=== PATIENT | female | born 1985 | race Hispanic/Latino ===

== ENCOUNTER 2017-11-18 03:57 | Emergency (ER) | payer OTHER ==
[2017-11-18] MEDS ORDERED: ACETAMINOPHEN EXTRA STRENGTH 500 MG TABLET ONE (04:34)
== END 2017-11-18 06:02 | disposition home or self-care (01) ==
LOC: EDH 03:57
DX: S63.681A Other sprain of right thumb, initial encounter (principal); S60.011A Contusion of right thumb without damage to nail, initial encounter; Z90.49 Acquired absence of other specified parts of digestive tract; W10.8XXA Fall (on) (from) other stairs and steps, initial encounter; Y93.01 Activity, walking, marching and hiking; Y92.098 Other place in other non-institutional residence as the place of occurrence of the external cause; Y99.8 Other external cause status
CPT/HCPCS: 73110; 73130

== ENCOUNTER 2024-04-02 15:03 | Emergency (ER) | payer MEDICAID ==
[~2024-04-02] VITALS: Ht 144.8 cm; Wt 57.6 kg
--- NOTE | 2024-04-02 16:44 | NUR ---
ASSUMED CARE AT THIS TIME
[2024-04-02] MEDS ORDERED: SILV20CR11 TP (18:13)
[2024-04-02] MEDS ORDERED: CLIN-116 PO (18:13)
--- NOTE | 2024-04-02 18:14 | ERN ---
General Chief Complaint: Abscess Stated Complaint: STAPH INFECTION ON ARMPIT Time Seen by MD: 15:31 Time Seen by Midlevel: 15:31 Source: patient History of Present Illness Initial Comments 38-year-old female who presents to the emergency department due to an abscess to the left arm pit ongoing x1 week. Patient reports pain, swelling and redness to the left armpit. The patient reports previous similar episodes to the right armpit. Denies any drainage, fever or further associated symptoms. Denies any significant past medical history. Allergies: Coded Allergies: No Known Allergies (Unverified Allergy, Unknown, 04/02/24) Home Meds Active Scripts Silver Sulfadiazine (Silvadene) 1 % Cream..g., 1 APPL TP DAILY for 7 Days, #50 GM 0 Refills apply to affected area(s) Prov:MICHAEL PIZANO 04/02/24 Clindamycin HCl (Clindamycin HCl) 150 Mg Capsule, 450 MG PO TID for 7 Days, #63 CAP Prov:MICHAEL PIZANO 04/02/24 Past Medical History Past Medical History: No Pertinent History Past Surgical History: Cholecystectomy Female( History) LMP: Mar 15, 2024 ROS Dictation Constitutional: Negative for fever,chills, and weight loss Eyes: Negative for injury, pain,redness, and discharge ENT: Negative for injury,pain or swelling Cardiovascular: Negative for chest pain, palpitations, and edema Respiratory: Negative for shortness of breath, cough, and wheezing, Abdomen/GI: Negative for abdominal pain, nausea, vomiting, diarrhea, and constipation Back: Negative for injury and pain : Negative for painful urination, bleeding or discharge MS/Extremity: Negative for injury and deformity Skin: Positive for left axillary abscess Negative for rash, and discoloration Neuro: Negative for headache, weakness, numbness, tingling, and seizure Psych: Negative for suicide ideation, homicidal ideation, and hallucinations Physical Exam Physical Exam Dictation General: awake, alert, no acute distress Head/Face: Normocephalic, atraumatic Eyes: PERRL, EOMI, normal conjunctiva ENT: oral cavity clear, oral mucosa moist Neck: Supple, normal range of motion Cardiovascular: RRR, normal S1/S2 Respiratory: No respiratory distress Skin: 2nd degree burn noted to the right glute, left axillary folliculitis, erythema, no drainage, warm, dry, normal turgor MS/Extremity: Pulses equal, no cyanosis, neurovascular intact, FROM Neuro: COAx4, GCS 15, no neurological deficits, normal gait Psych: Normal behavior, mood, and affect normal MDM MDM: Differential diagnosis: Abscess, cellulitis, folliculitis Rationale:38-year-old female who presents to the emergency department due to an abscess to the left arm pit ongoing x1 week. Patient reports pain, swelling and redness to the left armpit. The patient reports previous similar episodes to the right armpit. Denies any drainage, fever or further associated symptoms. Denies any significant past medical history. Per physical examination 2nd degree burn noted to the right glute, left axillary folliculitis with erythema, no drainage. Acetaminophen administered in the ED. Clindamycin and Silvadene prescribed for outpatient treatment. Patient was educated on findings and diagnosis. Advised to follow up with PCP. Return to the emergency department if any worsening symptoms. Patient verbalized understanding. Patient stable for discharge. There are no social concerns with this patient. I independently interpreted the test that were performed, results were reviewed by me and considered findings on radiology if ordered. Medical management and examination interpretation discussions were had by me with other qualified healthcare professionals as indicated for the patient's care. ED Course Orders Procedure Category Date Status Time Acetaminophen 500mg PHA 04/02/24 Complete Tab (Tylenol 500mg T 18:30 Current Medications Medications (Trade) Dose Ordered Sig/Tiffany Route PRN Reason Start Time Stop Time Status Last Admin Dose Admin Acetaminophen (TYLenol 500MG TAB) 1,000 mg ONCE ONCE PO 04/02/24 18:30 04/02/24 18:31 DC 04/02/24 18:30 Vital Signs Date Time Temp Pulse Resp B/P (MAP) Pulse Ox O2 Delivery O2 Flow Rate FiO2 04/02/24 18:15 98.2 86 20 149/81 99 Room Air* 0 21 04/02/24 15:49 98.2 114 20 152/94 99 Room Air DX & DISP Disposition: Discharge Departure Impression: Primary Impression: Folliculitis Additional Impressions: Second degree burn, Cellulitis Condition: Stable Scripts Silver Sulfadiazine (Silvadene) 1 % Cream..g. 1 APPL TP DAILY for 7 Days, #50 GM 0 Refills apply to affected area(s) Prov: MICHAEL PIZANO 04/02/24 Clindamycin HCl (Clindamycin HCl) 150 Mg Capsule 450 MG PO TID for 7 Days, #63 CAP Prov: MICHAEL PIZANO 04/02/24 Additional Instructions: Discharge home. Rest. Follow up with primary care DrKimmy in 24 hours. Return to the ER for any acute changes or worsening symptoms. If any medications were prescribed take as directed. Okay to continue home medications unless otherwise discussed during your visit in the emergency room today. Patient was also advised to follow-up with primary care physician in 1 to 2 days for continued monitoring. Referrals: SELF,REFERRAL (PCP) I performed the substantive portion of the visit. I have reviewed and personall y made and approve the management plan that is documented in the notes by myself or the JL. I acknowledge full responsibility for the patient's management plan. MICHAEL PIZANO Apr 02, 2024 18:14
[2024-04-02 18:15] VITALS: BP 149/81; PULSE 86; RESP 20; TEMP 98.2; O2SAT 99
[2024-04-02] MEDS: acetaMINOPHEN 500 MG TABLET PO ONE (18:30)
== END 2024-04-02 18:33 | disposition home or self-care (01) ==
LOC: EDH 15:03
DX: T23.202A Burn of second degree of left hand, unspecified site, initial encounter (principal); L73.9 Follicular disorder, unspecified; L03.112 Cellulitis of left axilla; Z90.49 Acquired absence of other specified parts of digestive tract; X08.8XXA Exposure to other specified smoke, fire and flames, initial encounter; Y93.89 Activity, other specified; Y92.89 Other specified places as the place of occurrence of the external cause; Y99.8 Other external cause status
CPT/HCPCS: 99283

== ENCOUNTER 2024-04-07 12:43 | Emergency (ER) | payer MEDICAID ==
[~2024-04-07] VITALS: Ht 144.8 cm; Wt 57.6 kg
[~2024-04-07 12:43] MED LIST: CLIN-116 PO; SILV20CR11 TP
--- NOTE | 2024-04-07 15:50 | ERN ---
ED Note History of Present Illness Stated Complaint: POSSIBLE STAFF INFECTION Chief Complaint: Abscess Time Seen by MD: 14:27 Time Seen by Midlevel: 15:45 Dictation: Ms. Hernandez is a 38-year-old female with no reported chronic health issues who presented to the emergency department for pain to the left axilla. She reports pain to the left axilla times two weeks. She states she has a history of abscess formation in this area in the past. She was seen in this ER on 04/02 and was placed on clindamycin for diagnosis of folliculitis. She states the pain continues and today it open and is draining purulent drainage. She denies having fever, chills, shortness of breath, cough, chest pain, palpitations, abdominal pain, nausea, vomiting, diarrhea, dysuria, headache, or dizziness. Allergies: Coded Allergies: No Known Allergies (Unverified Allergy, Unknown, 04/02/24) Home Meds Active Scripts Tramadol HCl/Acetaminophen (Tramadol-Acetaminophn 37.5-325) 37.5 Mg-325 Mg Tablet, 1 EACH PO [id number], #12 TAB 0 Refills Prov:SRINIVASA PEPE NP 04/07/24 Ibuprofen (Ibuprofen) 600 Mg Tablet, 600 MG PO Q6H PRN for PAIN, #15 TAB 0 Refills Prov:SRINIVASA PEPE NP 04/07/24 Amoxicillin/Potassium Clav (Amox Tr-K Clv 875-125 mg Tab) 875 Mg-125 Mg Tablet, 1 TAB PO BID for 10 Days, #20 TAB 0 Refills Prov:SRINIVASA PEPE NP 04/07/24 Silver Sulfadiazine (Silvadene) 1 % Cream..g., 1 APPL TP DAILY for 7 Days, #50 GM 0 Refills apply to affected area(s) Prov:MICHAEL PIZANO 04/02/24 Clindamycin HCl (Clindamycin HCl) 150 Mg Capsule, 450 MG PO TID for 7 Days, #63 CAP Prov:MICHAEL PIZANO 04/02/24 Past Medical History Past Medical History: No Pertinent History Surgical History: Cholecystectomy LMP: Mar 15, 2024 RN Note Reviewed/Agreed w/PFSH: Yes Review of System Dictation REVIEW OF SYSTEMS: CONSTITUTIONAL: Patient denies fevers, chills, sweats and weight changes. EYES: Patient denies any visual symptoms. EARS, NOSE, AND THROAT: No difficulties with hearing. No symptoms of rhinitis or sore throat. CARDIOVASCULAR: Patient denies chest pains, palpitations, orthopnea and paroxysmal nocturnal dyspnea. RESPIRATORY: No dyspnea on exertion, no wheezing or cough. GI: No nausea, vomiting, diarrhea, constipation, abdominal pain, hematochezia or melena. : No urinary hesitancy or dribbling. No nocturia or urinary frequency. No abnormal urethral discharge. MUSCULOSKELETAL: No myalgias or arthralgias. NEUROLOGIC: No chronic headaches, no seizures. Patient denies numbness, tingling or weakness. PSYCHIATRIC: Patient denies problems with mood disturbance. No problems with anxiety. ENDOCRINE: No excessive urination or excessive thirst. DERMATOLOGIC: Reports abscess left axilla. States she has been on a course of clindamycin with no improvement. Initial Vital Sign VS Vital Signs Date Time Temp Pulse Resp B/P (MAP) Pulse Ox O2 Delivery O2 Flow Rate FiO2 04/07/24 13:00 98.4 99 16 150/93 99 Room Air 0 04/07/24 16:55 21 Physical Exam Dictation Vital signs: Reviewed. Afebrile Constitutional: No acute distress. Non-toxic appearing. Head/Face: Normocephalic, atraumatic. Eyes: Periorbital areas with no swelling, redness, or edema. Lids and lashes are normal. Conjunctival injection is absent. Sclera anicteric. Pupils equal, round, reactive to light. ENT: Pinnas intact and no signs of trauma or erythema. Ear canals clear and no discharge. TMs no erythema. No nasal discharge or bleeding noted. Oropharynx with no exudate, redness, swelling, masses, exudates, or evidence of obstruction. Uvula midline. Mucous membranes moist. Neck: Trachea midline, no masses palpated, and no cervical lymphadenopathy. No swelling. Supple, full range of motion. Chest/Axilla: No tenderness, no crepitus, no paradoxical movement, no retractions. Cardiovascular: Regular rate, regular rhythm, no murmur, no gallops. Symmetric pulses. No peripheral edema. Respiratory: Respirations even and unlabored. Lung sounds clear; no wheezes, rales or rhonchi. Room air SpO2 99% Gastrointestinal: Inspection is normal. No distention is appreciated. Bowel sounds are normal. No mass or organomegaly . There is no tenderness. No rebound. No rigidity. No voluntary or involuntary guarding. No Lerma's sign. Neurological: Normal speech, gross motor function intact, gross sensory function intact. No focal weakness/Paresthesia. Musculoskeletal/Extremities: All extremities have full range of motion, no pain or tenderness on palpation. Symmetric pulses. Integumentary: Skin is normal color, warm and dry. Cap refill less than 3 seconds. There is a 4 cm lesion to left axilla with fluctuant center with small open area with purulent drainage. Wound was cultured. There was no surrounding erythema or warmth extending to the chest wall or breast. ED Course ED Course Uneventful ED course. Vital signs stable; afebrile. She received dose Toradol x1. I and D was performed of the left axilla fluctuant area and packed with gauze. Sterile dressing was applied. Tolerated well. Pain well controlled. Medical Decision Making MDM MDM: Differential diagnosis: Abscess axilla, cellulitis Rationale: Tests considered and ordered secondary to shared decision making include: Examination Previous outside records reviewed: Old ER visits. Risk of complication and/or morbidity or mortality of patient management: None Medications-Per medication reconciliation Need for hospitalization: Patient does not meet criteria for hospitalization. Need for emergency major/minor surgery: No There are no social concerns with this patient. Prescription drug management: Ibuprofen, tramadol, Augmentin Prescriptions will include symptomatic care Patient's prior external medical records from other ER visits were reviewed by me as indicated. Prior testing and results from previous visits were reviewed. Prior tests were taken into account with medical decision making and resource utilization, independent historian/historians were used to obtain complete medical history. I independently interpreted the test that were performed, results were reviewed by me and considered findings on radiology if ordered. Medical management and examination interpretation discussions were had by me with other qualified healthcare professionals as indicated for the patient's care. Procedure Site: Left axilla Blade Size: 1% lidocaine utilized 6 mL. I & D Procedure: no betadine prepno sterile dressing appliedno gauze wick placed DX & DISP Disposition: Discharge Departure Impression: Primary Impression: Abscess of axillary fold Condition: Stable Scripts Tramadol HCl/Acetaminophen (Tramadol-Acetaminophn 37.5-325) 37.5 Mg-325 Mg Tablet 1 EACH PO [id number], #12 TAB 0 Refills Prov: SRINIVASA PEPE NP 04/07/24 Ibuprofen (Ibuprofen) 600 Mg Tablet 600 MG PO Q6H PRN for PAIN, #15 TAB 0 Refills Prov: SRINIVASA PEPE NP 04/07/24 Amoxicillin/Potassium Clav (Amox Tr-K Clv 875-125 mg Tab) 875 Mg-125 Mg Tablet 1 TAB PO BID for 10 Days, #20 TAB 0 Refills Prov: SRINIVASA PEPE NP 04/07/24 Additional Instructions: Allow packing to fall out. Warm moist compresses; okay to shower. Continue antibiotic with amoxicillin twice daily for 10 days. May take ibuprofen 600 mg every 6 hours as needed for discomfort. May take tramadol every 12 hours as needed for worsening pain. Continue to monitor for increased swelling, surrounding warmth or redness, and fever. Follow up with your primary care physician this week. Return to the emergency department for any worsening of symptoms or concerns. Referrals: NONE (PCP) Time of Disposition: 16:58 I performed a substantive portion of the visit. I have reviewed and personally made and approve the management plan that is documented in the notes by myself with JL/resident. I acknowledged full responsibility for the patient's management plan. SRINIVASA PEPE NP Apr 07, 2024 15:50 ENRIQUE KIRBY DO Apr 14, 2024 08:59
[2024-04-07] MEDS: ketOROlac 30MG VIAL (30MG/ML) IM ONE (16:02)
[2024-04-07 16:55] VITALS: BP 141/72; PULSE 86; RESP 16; TEMP 98.2; O2SAT 99
[2024-04-07] MEDS ORDERED: TRAM-543 PO (16:57)
[2024-04-07] MEDS ORDERED: IBUP-2070 PO (16:57)
[2024-04-07] MEDS ORDERED: AMOX1TAB16 PO (16:57)
== END 2024-04-07 17:06 | disposition home or self-care (01) ==
LOC: EDH 12:43
DX: L02.412 Cutaneous abscess of left axilla (principal); Z90.49 Acquired absence of other specified parts of digestive tract; Z79.899 Other long term (current) drug therapy
CPT/HCPCS: 99283; 10060; 87076; 87086 ×2; 87186 ×2; 87070; 96372; J1885

== ENCOUNTER 2024-08-10 17:54 | Emergency (ER) | payer SELFPAY ==
[~2024-08-10] VITALS: Ht 144.8 cm; Wt 62.1 kg
[~2024-08-10 17:54] MED LIST changes: +AMOX1TAB16 PO; +IBUP-2070 PO; +TRAM-543 PO
[2024-08-10 18:16] LABS: ADD UA MICROSCOPIC YES; APPEARANCE,URINE HAZY (CLEAR); GLUCOSE, URINE (UA) NEGATIVE (NEGATIVE); LEUKOCYTE ESTERASE ,URINE 25 Leu/uL (NEGATIVE); NITRATE,URINE NEGATIVE (NEGATIVE); OCCULT BLOOD,URINE NEGATIVE (NEGATIVE)
[2024-08-10 18:20] LABS: SQUAMOUS EPITHELIAL CELL,UR MOD /HPF (0-2)
--- NOTE | 2024-08-10 18:20 | ERN ---
ED Note History of Present Illness Stated Complaint: ABD PAIN WITH Chief Complaint: Abdominal Pain in Time Seen by MD: 17:57 Time Seen by Midlevel: 18:00 Dictation: 39-year-old female coming in with complaints of lower abdominal pain, sharp. Patient states it started today. Patient states she is , does not know how far along she is. Patient is attributing her pain to moving heavy objects yesterday. However wanted to coming to the emergency room and be evaluated. Denies any dysuria, hematuria, vaginal discharge, vaginal bleeding. Allergies: Coded Allergies: No Known Allergies (Unverified Allergy, Unknown, 04/02/24) Home Meds Active Scripts Tramadol HCl/Acetaminophen (Tramadol-Acetaminophn 37.5-325) 37.5 Mg-325 Mg Tablet, 1 EACH PO [id number], #12 TAB 0 Refills Prov:SRINIVASA PEPE NP 04/07/24 Ibuprofen (Ibuprofen) 600 Mg Tablet, 600 MG PO Q6H PRN for PAIN, #15 TAB 0 Refills Prov:SRINIVASA PEPE NP 04/07/24 Amoxicillin/Potassium Clav (Amox Tr-K Clv 875-125 mg Tab) 875 Mg-125 Mg Tablet, 1 TAB PO BID for 10 Days, #20 TAB 0 Refills Prov:SRINIVASA PEPE NP 04/07/24 Silver Sulfadiazine (Silvadene) 1 % Cream..g., 1 APPL TP DAILY for 7 Days, #50 GM 0 Refills apply to affected area(s) Prov:MICHAEL PIZANO 04/02/24 Clindamycin HCl (Clindamycin HCl) 150 Mg Capsule, 450 MG PO TID for 7 Days, #63 CAP Prov:MICHAEL PIZANO 04/02/24 Past Medical History Past Medical History: No Pertinent History Surgical History: Cholecystectomy Surgical History Other: D&C X2 : 5 Para: 2 Aborts: 2 Review of System Dictation Constitutional: Negative for fever,chills, and weight loss Eyes: Negative for injury, pain,redness, and discharge ENT: Negative for injury,pain or swelling Cardiovascular: Negative for chest pain, palpitations, and edema Respiratory: Negative for shortness of breath, cough, and wheezing, Abdomen/GI: Lower abdominal pain Back: Negative for injury and pain : Negative for injury, bleeding and discharge MS/Extremity: Negative for injury and deformity Skin: Negative for rash, and discoloration Neuro: Negative for headache, weakness, numbness, tingling, and seizure Psych: Negative for suicide ideation, homicidal ideation, and hallucinations Review of Systems: was completed Initial Vital Sign VS Vital Signs Date Time Temp Pulse Resp B/P (MAP) Pulse Ox O2 Delivery O2 Flow Rate FiO2 08/10/24 17:57 98.2 89 16 134/79 100 Room Air 0 08/10/24 18:12 21 Physical Exam Dictation General: awake, alert, NAD Head/Face: Normocephalic, atraumatic Eyes: PERRL, EOMI, vision at baseline ENT: oral cavity clear, TMs clear, no signs of infection Neck: Trachea midline, supple, no nuchal rigidity Cardiovascular: RRR, normal S1/S2, No MRGs, no JVD Respiratory: CTAB, no respiratory distress, No rales or wheezes Abdomen: Soft, non-tender, non-distended, normal bowel sounds, no guarding or rebound. Skin: Warm, dry, normal turgor, no rash MS/Extremity: Pulses equal, no cyanosis, neurovascular intact, FROM Neuro: COAx4, GCS 15, strength 5/5, CN 2-12 intact, normal cerebellar exam, normal gait, Psych: Normal behavior, mood, and affect normal Results (Laboratory/Radiology) Laboratory/Radiology Laboratory Tests Test 08/10/24 18:10 08/10/24 18:14 Urine Color LIGHT-YELLOW (YELLOW) Urine Appearance HAZY (CLEAR) Urine pH 7.0 (5.0-8.0) Urine Specific [place] 1.029 (1.001-1.031) Urine Protein NEGATIVE mg/dL (NEGATIVE) Urine Glucose (UA) NEGATIVE mg/dL (NEGATIVE) Urine Ketones NEGATIVE mg/dL (NEGATIVE) Urine Occult Blood NEGATIVE (NEGATIVE) Urine Nitrate NEGATIVE (NEGATIVE) Urine Bilirubin NEGATIVE mg/dL (NEGATIVE) Urine Urobilinogen 0.2 mg/dL (0.2-1.0) Urine Leukocyte Esterase 25 [place]/uL (NEGATIVE) H Urine RBC 0-1 /HPF (0-1) Urine WBC 2-5 /HPF (0-1) H Urine Squamous Epithelial Cells MOD /HPF (0-2) Urine Amorphous Crystals (Auto) RARE /LPF (None Seen) Urine Bacteria FEW /HPF (None Seen) White Blood Count 9.5 K/uL (4.8-10.8) Red Blood Count 4.25 MIL/uL (4.00-5.50) Hemoglobin 12.7 g/dL (12.0-16.0) Hematocrit 37.2 % (36-48) Mean Corpuscular Volume 87.5 fL (79-99) Mean Corpuscular Hemoglobin 29.9 pg (27.0-33.0) Mean Corpuscular Hemoglobin Concent 34.1 g/dL (32.0-36.0) Red Cell Distribution Width 13.5 % (11.0-15.5) Platelet Count 375 K/uL (130-400) Mean Platelet Volume 10.1 fL (7.5-10.5) Immature Granulocyte % (Auto) 0.2 % (0-1) Neutrophils (%) (Auto) 61.0 % (40.0-77.0) Lymphocytes (%) (Auto) 28.7 % (21.0-51.0) Monocytes (%) (Auto) 7.9 % (3.0-13.0) Eosinophils (%) (Auto) 1.5 % (0.0-8.0) Basophils (%) (Auto) 0.7 % (0.0-5.0) Neutrophils # (Auto) 5.8 K/uL (1.8-7.7) Lymphocytes # (Auto) 2.7 K/uL (1.0-4.8) Monocytes # (Auto) 0.8 K/uL (0.1-1.0) Eosinophils # (Auto) 0.14 K/uL (0.00-0.70) Basophils # (Auto) 0.07 K/uL (0.00-0.20) Absolute Immature Granulocyte (auto 0.02 K/uL (0-1) Nucleated Red Blood Cells 0.0 % (0.0-0.19) Sodium Level 141 mmol/L (136-145) Potassium Level 4.1 mmol/L (3.5-5.1) Chloride Level 107 mmol/L (101-111) Carbon Dioxide Level 25 mmol/L (21-32) Blood Urea Nitrogen 14 mg/dL (7-18) Creatinine 0.7 mg/dL (0.5-1.0) Glomerular Filtration Rate Calc 114 mL/min (>90) Random Glucose 89 mg/dL (70-105) Total Calcium 8.6 mg/dL (8.5-10.1) Human Chorionic Gonadotropin, Quant 77430 mIU/mL (0-5) H Labs Reviewed?: Yes ED Course ED Course Orders Procedure Category Date Status Time Cbc With Differential LAB 08/10/24 Complete 17:59 Basic Metabolic Panel LAB 08/10/24 Complete 17:59 Hcg,Quantitative LAB 08/10/24 Complete 17:59 Urinalysis Profile LAB 08/10/24 Complete 17:59 Us Ob <14 Weeks US 08/10/24 Taken 17:59 Acetaminophen 325 Tab PHA 08/10/24 Complete (Tylenol 325mg Tab 17:59 Current Medications Medications (Trade) Dose Ordered Sig/Tiffany Route PRN Reason Start Time Stop Time Status Last Admin Dose Admin Acetaminophen (TYLenol 325MG TAB) 650 mg ONCE STAT PO 08/10/24 17:59 08/10/24 18:03 DC 08/10/24 18:06 Vital Signs Date Time Temp Pulse Resp B/P (MAP) Pulse Ox O2 Delivery O2 Flow Rate FiO2 08/10/24 18:12 98.2 89 16 134/79 100 Room Air* 0 21 08/10/24 17:57 98.2 89 16 134/79 100 Room Air 0 Medical Decision Making MDM MDM: 39-year-old female coming in with complaints of lower abdominal pain, sharp. Patient states it started today. Patient states she is , does not know how far along she is. Patient is attributing her pain to moving heavy objects yesterday. However wanted to coming to the emergency room and be evaluated. Denies any dysuria, hematuria, vaginal discharge, vaginal bleeding. [place] [address]. UA shows no evidence of urinary tract infection. Preliminary report of the ultrasound shows a gestational age of seven weeks one day with a heart rate of 140. Discussed findings with the patient. Educated patient has follow up with the OBGYN in 1-2 days. Return to the hospital if she develops any new symptoms. Patient verbalized understanding, answered all questions. Differential diagnosis: Muscle pain, UTI Rationale: Tests considered and ordered secondary to shared decision making include: Previous outside records reviewed: Old ER visits. Risk of complication and/or morbidity or mortality of patient management: None Medications-Per medication reconciliation Need for hospitalization: Patient does not meet criteria for hospitalization. Need for emergency major/minor surgery: No There are no social concerns with this patient. Prescription drug management Prescriptions will include symptomatic care Patient's prior external medical records from other ER visits were reviewed by me as indicated. Prior testing and results from previous visits were reviewed. Prior tests were taken into account with medical decision making and resource utilization, independent historian/historians were used to obtain complete medical history. I independently interpreted the test that were performed, results were reviewed by me and considered findings on radiology if ordered. Medical management and examination interpretation discussions were had by me with other qualified healthcare professionals as indicated for the patient's care. DX & DISP Disposition: Discharge Departure Impression: Primary Impression: Abdominal pain Additional Impression: Condition: Stable Additional Instructions: Follow up with the OBGYN. Return to a hospital with a OBGYN services if symptoms worsen. Take Tylenol for pain control. Referrals: SELF,REFERRAL (PCP) Time of Disposition: 19:15 I have reviewed the case, and I agree with, Diagnosis and Plan RUBIO SEVILLA NP Aug 10, 2024 18:20
[2024-08-10 18:24] LABS: IMMATURE GRANULOCYTE ABSOLUTE 0.02 K/uL (0-1); NUCLEATED RED BLOOD CELLS 0.0 % (0.0-0.19); PLATELET COUNT (AUTO) 375 K/uL (130-400); RED BLOOD CELL COUNT(AUTO) 4.25 MIL/uL (4.00-5.50); RED CELL DISTRIBUTION WIDTH 13.5 % (11.0-15.5); WHITE BLOOD COUNT (AUTO) 9.5 K/uL (4.8-10.8)
[2024-08-10 18:30] LABS: CREATININE 0.7 mg/dL (0.5-1.0); GLOMERULAR FILTR. RATE CALC 114.0 mL/min (>90); GLUCOSE,RANDOM 89.0 mg/dL (70-105); SODIUM SERUM 141.0 mmol/L (136-145); UREA NITROGEN, BLOOD 14.0 mg/dL (7-18)
[2024-08-10 19:00] LABS: HCG,QUANTITATIVE 91398.0 mIU/mL (0-5)
[2024-08-10 19:18] VITALS: BP 124/74; PULSE 82; RESP 16; TEMP 98.2; O2SAT 100
--- NOTE | 2024-08-10 20:17 | HMCIMG ---
EXAMINATION: OB ULTRASOUND LESS THAN 14 WEEKS. CLINICAL HISTORY: Amenorrhea. Lower abdominal pain. COMPARISON: None. TECHNIQUE: Grayscale and color ultrasound images were obtained utilizing transabdominal transducer. FINDINGS: LMP: 06/16/2024, 7 weeks and 6 days. The uterus measures 10.3 X 4.6 X 6.3 cm. The gestation sac diameter measures 4.5 cm. There is a single, live intrauterine with an approximate gestational age of 7 weeks and 1 day as per the crown-rump length which measures 1.1 cm and a regular heart rate of 145 bpm. There is no evidence of subchorionic hemorrhage. The cervix measures is normal in length, Internal Os closed. EDC (by LMP): 03/23/2025 and EDC (by measurement): 03/20/2025. The right ovary is normal in caliber and measures 2.2 x 1.8 x 2.2 cm. The left ovary is normal in caliber and measures 2.7 x 1.5 x 2.5 cm. There is no free fluid within the pelvis. IMPRESSION: Live intrauterine with an approximate gestational age of 7 weeks and 1 day, and a regular heart rate of 145 bpm. /[place]
== END 2024-08-10 19:21 | disposition home or self-care (01) ==
LOC: EDH 17:54
DX: O26.891 Other specified pregnancy related conditions, first trimester (principal); R10.30 Lower abdominal pain, unspecified; R10.2 Pelvic and perineal pain; Z3A.01 Less than 8 weeks gestation of pregnancy; Z90.49 Acquired absence of other specified parts of digestive tract; Z79.899 Other long term (current) drug therapy
CPT/HCPCS: 36415; 76801; 80048; 81001; 84702; 85025; 99284